=== PATIENT | male | born 1975 | race Native Hawaiian/Other Pacific Islander ===

== ENCOUNTER 2017-10-23 20:15 | Emergency (ER) | payer MEDICAID ==
[2017-10-23] MEDS ORDERED: cefTRIAXone 250 MG VIAL IM STA (20:22)
[2017-10-23] MEDS ORDERED: AZITHROMYCIN 250 MG TABLET PO STA (20:22)
--- NOTE | 2017-10-23 20:28 | ED Physician Documentation ---
History of Present Illness - Stated complaint Stated Complaint: MALE - History obtained from History obtained from: Patient, Friend - History of Present Illness Timing: Today Pain level max: 0 Pain level now: 0 Improved by: nothing Worsened by: nothing - Additonal information Additional information: Patient is a 42-year-old male, here with his girlfriend he tested positive for gonorrhea. He has no symptoms. Review of Systems Constitutional: denies: Fever, Chills GI: denies: Abdominal Pain, Nausea, Vomiting, Diarrhea : denies: Dysuria, Discharge, Testicular pain, Testicular mass PD PAST MEDICAL HISTORY - Past Medical History Past Medical History: No - Past Surgical History Past Surgical History: No - Present Medications Home Medications: Ambulatory Orders Medication Instructions Recorded Confirmed No Known Home Medications [No 10/23/17 10/23/17 Known Home Medications] - Allergies Allergies/Adverse Reactions: Allergies Allergy/AdvReac Type Severity Reaction Status Date / Time No Known Drug Allergies Allergy Verified 10/23/17 20:22 - Living Situation Living Arrangement: reports: At home - Social History Does the pt have substance abuse?: No PD ED PE NORMAL - Vitals Vital signs reviewed: Yes - General General: Alert and oriented X 3, No acute distress, Well developed/nourished - HEENT HEENT: Moist mucous membranes - Neck Neck: Supple, no meningeal sign - Cardiac Cardiac: RRR, Strong equal pulses - Respiratory Respiratory: No respiratory distress, Clear bilaterally - Abdomen Abdomen: Soft, Non tender, Non distended - Male Male : Pt declined - Derm Derm: Warm and dry - Neuro Neuro: Alert and oriented X 3 - Psych Psych: Normal mood, Normal affect Results - Vitals Vitals: Vital Signs - 24 hr 10/23/17 10/23/17 20:43 21:21 Temperature 37.1 C 36.8 C Heart Rate 70 77 Respiratory 16 16 Rate Blood Pressure 126/78 135/92 H O2 Saturation 99 98 Oxygen O2 Source Room air PD MEDICAL DECISION MAKING - ED course Complexity details: considered differential, d/w patient ED course: Patient is a 42-year-old male who presents to the emergency department with his girlfriend who tested positive for gonorrhea. Patient treated as well. Patient is asymptomatic. Patient counseled regarding signs and symptoms for which I believe and urgent re-evaluation would be necessary. Patient with good understanding of and agreement to plan and is comfortable going home at this time This document was made in part using voice recognition software. While efforts are made to proofread this document, sound alike and grammatical errors may occur. Departure - Departure Disposition: 01 Home, Self Care Clinical Impression: Exposure to gonorrhea Condition: Good Instructions: ED Gonorrhea Male Follow-Up: your,doctor as needed [Other] Comments: You were treated for gonorrhea tonight. Use condoms for sexual activity and you should be retested to ensure that the infection has cleared from you and your partner. Notify any partners that they may be exposed as well. Discharge Date/Time: 10/23/17 21:21
[2017-10-23] MEDS ORDERED: AZITHROMYCIN 250 MG TABLET PO ONE (20:42)
[2017-10-23] MEDS ORDERED: LIDOCAINE 1% 2 ML VIAL ONE (20:42)
[2017-10-23] MEDS ORDERED: cefTRIAXone 250 MG VIAL ONE (20:43)
[2017-10-23 21:24] VITALS: BP 135/92
== END 2017-10-23 21:21 | disposition home or self-care (01) ==
LOC: ED 20:15
DX: Z20.2 Contact with and (suspected) exposure to infections with a predominantly sexual mode of transmission (principal)
CPT/HCPCS: 96372; 99283; A9270

== ENCOUNTER 2017-11-04 23:08 | Outpatient (CLI) | payer MEDICAID | END 2017-11-04 23:09 | disposition EMS.NT | LOC: EMS 23:08 | PROVIDERS: ATTEND Surgery | DX: S05.12XA Contusion of eyeball and orbital tissues, left eye, initial encounter (principal); Y04.2XXA Assault by strike against or bumped into by another person, initial encounter ==

== ENCOUNTER 2017-11-05 17:32 | Emergency (ER) | payer MEDICAID ==
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
[2017-11-05] MEDS ORDERED: IBUPROFEN 600 MG TABLET PO STA (19:16)
[2017-11-05] MEDS ORDERED: HYDROcod/ACETAM 5/325 MG TABLET PO STA (19:16)
--- NOTE | 2017-11-05 20:18 | XRAY Preliminary Report ---
Exam: XR LUMBAR SPINE 2 VIEW IMPRESSION: Mild disk osteophyte chronic degenerative disease. No acute fracture or subluxation. [facility] SITE ID: [id number]
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
--- NOTE | 2017-11-05 20:34 | CT Preliminary Report ---
Exam: CT HEAD W/O IMPRESSION: No intracranial abnormality or skull fracture. [facility] SITE ID: [id number]
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
--- NOTE | 2017-11-05 20:39 | CT Preliminary Report ---
Exam: CT FACIAL BONES W/O IMPRESSION: 1. No acute bony abnormality identified. 2. Numerous caries. 3. Scattered chronic sinusitis. [facility] SITE ID: [id number]
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
[2017-11-05] MEDS ORDERED: HYDROcod/ACET 5/325 Prepack 6 PO STA (21:36)
[2017-11-05] MEDS ORDERED: AMOXICILLIN 250 MG CAPSULE PO STA (21:36)
[2017-11-05 21:41] VITALS: BP 122/86
== END 2017-11-05 22:18 | disposition home or self-care (01) ==
LOC: ED 17:32
DX: S00.83XA Contusion of other part of head, initial encounter (principal); S30.0XXA Contusion of lower back and pelvis, initial encounter; S00.12XA Contusion of left eyelid and periocular area, initial encounter; S00.81XA Abrasion of other part of head, initial encounter; Y08.89XA Assault by other specified means, initial encounter; J01.40 Acute pansinusitis, unspecified; F17.200 Nicotine dependence, unspecified, uncomplicated
CPT/HCPCS: 70450; 70486; 72100; 99283; 99284; A9270